=== PATIENT | male | born 1985 | race Caucasian/White ===

== ENCOUNTER 2017-05-05 11:01 | Observation (INO) | payer OTHER ==
[2017-05-05] MEDS ORDERED: Acetaminophen 325 MG TAB ONE (13:37)
[2017-05-05] MEDS ORDERED: Dextrose 50% Abboject 50 ML SYRINGE SLOW IVP PRN (14:57)
[2017-05-05] MEDS ORDERED: Acetaminophen 325 MG TAB PO PRN (14:57)
[2017-05-05] MEDS ORDERED: HumaLOG 300 UNITS/3 ML VIAL SC PRN (14:57)
[2017-05-05] MEDS ORDERED: Dextrose 5% in Water 1,000 ML IV PRN (14:57)
[2017-05-05 15:06] VITALS: BMI 19.3
--- NOTE | 2017-05-05 17:37 | HP ---
PRIMARY CARE PHYSICIAN: None. PRIMARY NEUROLOGIST: Dr. Marroquin and Dr. Mony Link. CHIEF COMPLAINT: Seizures. HISTORY OF PRESENT ILLNESS: Mr. Cannon is a 31-year-old white male with multiple previous admissions for seizure activity, bipolar disorder, schizoaffective disorder, who presents to the emergency depa rtment in [place] for seizures. The patient stated he was brought in by his mother who said he had 12 tonic clonic episodes overnight . He also communicated her that he had some suicidal ideation and had no immediate plan. He denies any of that other than the episodes. Today, he feels okay. No fevers or chills, no chest pain or shortness of breath. No nausea or vomit ing. Further review of the chart shows he was admitted here in 09/2016 for same episodes. He underwent EE G monitoring with demonstrated episodes that showed no epileptiform activity. He was taken off his K eppra and his Dilantin and diagnosed with pseudoseizures. He was supposed to do a 24-hour EEG monito ring with Dr. Mony Link, but his insurance denied as they had proof of non-epileptiform activity. He subsequently has not been back for followup. The patient states he is still taking his Dilantin and his Keppra, but it is unclear he has been fill ing these. He denies any other current complaints. Workup in the ER showed a normal bicarbonate, normal CK. He has had no episodes here and prolactin o rdered stat has come back negative. No other current complaints. PAST MEDICAL HISTORY: 1. 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 2. Cerebrovascular disease status post stroke in 2013 with a normal MRI in 09/2016. 3. Bipolar disorder, not on medication. 4. Schizoaffective disorder, not on medications. PAST SURGICAL HISTORY: Cholecystectomy and tonsillectomy. HOME MEDICATIONS: He says he takes Keppra and Dilantin. Does not know his doses. Does not have his bottles with him. ALLERGIES: ASPIRIN, DEMEROL, PENICILLIN G, SULFA, ZITHROMAX. He cannot recall the reactions. He is allergic to TOMATOES and BANANAS. SOCIAL HISTORY: Negative for tobacco about 1 pack per day for the last 20 years. He said he started smoking when he was 9. FAMILY HISTORY: Negative for clotting or bleeding disorder. No immune dysfunction. No blood tumors . REVIEW OF SYSTEMS: A 10-point review of systems was attempted. The patient answered negative to all systems, but unsure of the reliability. PHYSICAL EXAMINATION: VITAL SIGNS: Temperature 98.9, pulse 84, blood pressure 113/72, respiratory rate 14, sat 99% on room air. GENERAL: He is awake. He is alert. He is oriented x3. He is a little on the slow side, but answer s questions completely. He does not appear to be in acute distress. HEENT: Normocephalic, atraumatic. He has a small blood blister present on the center of his lower l ip. He has no lacerations on his tongue. Mucous membranes are clear without any thrush. NECK: Supple without lymphadenopathy, JVD, or thyromegaly. There are normal carotid upstrokes. The re are no bruits. LUNGS: Clear to auscultation bilaterally. Good air movement with symmetrical chest excursion. No p rolonged expiratory phase. No wheezes or rales. CARDIOVASCULAR: Normal S1, S2. There is no S3 or S4. He has got a bounding PMI normal size. He jackson s got no murmurs. ABDOMEN: Soft. It is nontender, nondistended. Good bowel sounds present in all 4 quadrants. There is no rebound, rigidity, or guarding. He has no hepatosplenomegaly. EXTREMITIES: No cyanosis, no clubbing, no edema. Has has 2+ peripheral pulses in dorsalis pedis, po sterior tibial, and radial arteries bilaterally. SKIN: Warm, moist, and well perfused. He has no rashes or lesions otherwise. NEUROLOGIC: Cranial nerves II-XII grossly intact. He has 5/5 strength in all 4 of his extremities. Normal reflexes. Normal speech pattern, though little slow. MUSCULOSKELETAL: Normal to inspection. He has no inflamed joints. No palpable effusions. Good ran ge of motion. LABORATORY DATA: Sodium 136, potassium 3.3, chloride 101, bicarb 23, BUN 8, creatinine 1.05, glucose 164, and calcium 9.1. Liver function completely normal. CBC showed a white count of 9.9, hemoglobi n 17.2, hematocrit of 51.2, platelet count 273,000 with normal white differential. Urine drug screen negative. Urinalysis negative. CK was 124. MRI in 09/2016 negative. ASSESSMENT AND PLAN: 1. Pseudoseizures: I do not think the patient was having active seizures. Given he had 12 episodes , CK should not be normal nor is bicarbonate. Prolactin is normal. I spoke with imtiaz Villaseñor stated that we can place him on observation and get a 24-hour EEG monitoring. If he had more event s that were negative, then we probably would be able to definitively diagnose pseudoseizures and not had to admit him anymore. The patient was placed in observation, will get a 24-hour EEG monitoring o rdered. We will check a Keppra level and a Dilantin level though he just did get a dose of Dilantin in the ER for some reason and will follow up on these. 2. History of cerebrovascular disease. The patient has a normal MRI. I do not see any encephalomal acia, nothing was called by Radiology. I am not convinced that he had an episode at all. 3. Bipolar disorder, on no medications. 4. Schizoaffective disorder, not on medications. 5. The patient will be placed on SCDs for deep venous thrombosis prophylaxis and Pepcid p.o. b.i.d. for gastrointestinal prophylaxis.
[2017-05-05] MEDS: Nicotine 14 MG PATCH TD SCH (19:55)
[2017-05-05] MEDS: Famotidine 20 MG TAB PO SCH (19:55)
[2017-05-06 07:45] VITALS: TEMP 98.5
[2017-05-06 11:02] VITALS: BP 95/56
[2017-05-06] MEDS: Famotidine 20 MG TAB PO SCH (11:18)
[2017-05-06] MEDS: Nicotine 14 MG PATCH TD SCH (11:18)
--- NOTE | 2017-05-06 16:07 | DIS ---
DATE OF ADMISSION: 05/05/2017 DATE OF DISCHARGE: 05/06/2017 DISCHARGE DIAGNOSES: 1. Pseudoseizures. 2. Noncritical suicidal ideation. 3. Bipolar disorder. 4. Schizoaffective disorder. 5. Ongoing tobacco abuse. CONSULTATIONS: Neurology for continuous EEG monitoring for 24 hours. PROCEDURE: Continuous EEG monitoring for 22 hours. During that time, the patient had no episodes. No epileptiform discharges were noted. The patient did get up and go to the bathroom without assista nce and did disconnect himself for a few hours, but had no spells during that time. HISTORY AND PHYSICAL: Mr. Cannon is a 31-year-old gentleman with a history of bipolar disorder and s chizoaffective disorder, recently admitted in 09/2016 for an episode of multiple seizures. During th at time, he had EEG monitoring and had episodes of tonic clonic activity. During stimulation, he had no epileptiform discharges on his EEG monitoring. He was discharged with a diagnosis of pseudoseizu res with outpatient followup for a continuous 24-hour EEG monitoring, but the insurance denied due to the fact that he had a witnessed event with negative EEG monitoring in the hospital. The patient never came for followup. He was taken off the Dilantin and Keppra and did well. The patient presented to the emergency department on 05/05/2017 with complaints of 12 episodes of sei zure overnight. In the emergency department, he had a normal bicarbonate, negative prolactin, normal CK, we were called for admission procedures. On review of the history, I did contact Dr. Mony Link. The history as above was reviewed. We agre ed to place the patient in observation and put him on continuous monitoring via another negative seri es, and then we could assume these were pseudoseizures and do not need any further admissions in the future. HOSPITAL COURSE: The patient was seen and examined by me. He was admitted to observation on the str [facility] unit. He started continuous EEG monitoring and was watched overnight. Overnight 1-2, no episodes. He did disconnect himself incidentally from the EEG monitoring for a few hours, but was replaced. There was no spells during that time. He had no spells, well connected, h ad no evidence of epileptiform discharges. When he was told, he could not go down to smoke shortly after admission, he did threaten to commit ramos icide, [facility] was consulted and saw the patient and cleared him for discharge home as it was an empty t hreat. He had no other problems. This morning on examination, the patient refused to wake up and talk, but had no problem waking up 5 minutes before that to eat his breakfast. He was discharged home at the conclusion of EEG monitoring for outpatient followup. We did a physica l exam. The patient was seen and examined on day of discharge. DISCHARGE PLAN AND DISPOSITION: Return to be discussed with the patient; however, he would not respo nd. DISCHARGE MEDICATIONS: Resuming all home medications. He is supposed to be on metformin which will continue, antiepileptic per his primary doctor if they deem appropriate. DISCHARGE CONDITION: Good. DISPOSITION: Discharged home via private vehicle. DISCHARGE DIET: Diabetic. DISCHARGE ACTIVITY: As tolerated. FOLLOWUP: 1. PCP: He has none needs to establish. 2. [facility] the next available. 3. Both Dr. Cara Link and Dr. Mony Link did not need to see him in followup as he has no seizure disorder.
--- NOTE | 2017-05-12 10:52 | EEG ---
Referring Physician: DR. Casie LUCAS EEG # [id number] TEST TYPE: PROLONGED 24 HOUR EEG PROCEDURE: Video EEG report PATIENT NAME: Sarmad Cannon MR# [id number] : 1985 LOCATION: [address] [place] [address] STUDY TYPE: VIDEO EEG STUDY DATE: 05/05/2017 05/06/2017 THE STUDY WAS REVIEWED AND INTERPRETED BY DR. BLANCA BURT STUDY REPORT: This was a technically difficult study for interpretation because of abundant movement and electrode artifact throughout the recording. Patient was started on the recording on 05/05/17 at 17:07:50 and then patient had disconnected his EEG at 20:36:21 He was reconnected on 05/06/2017 at 7:45 28 and he disconnected it again at 11:14:13. So in this 24-hour video EEG recording, we were able to record 6-7 hours of video EEG. The background rhythm in the artifact free period showed a background rhythm consisting of myogenic activity mixed with abundant beta activity and some alpha rhythm of 8-9 Hz. It was symmetric and reactive bilaterally. Again abundant movement and electrode artifact noted. DROWSINESS: No clear periods of drowsiness noted during the recording. SLEEP: Subject was able to attain non-REM sleep with normal sleep potentials. INTERICTAL EEG: Patient did not have any clear epileptiform activity during the recording. He did not have any electrographic seizure events during the recording. ICTAL EVENTS: The patient did not have any episodes during this recording even when the EEG was disconnected he did not have any spells. INTERPRETATION: Normal awake and asleep EEG. This study was recorded for around 7 hours, No epileptiform activity or electrographic seizure activity noted. Again, it was a technically difficult study because of the abundant movement and electrode artifact, Clinical correlation recommended. Ditto Machine Operator:lalito Diamond Die Polisher: [email or web address].[email or web address] GENTILE
== END 2017-05-06 15:15 | disposition home or self-care (01) ==
LOC: ERS 11:01 → ERHOLD 12:09 → 2SE 14:32
PROVIDERS: ADMIT Internal Medicine Infectious Disease; ATTEND Internal Medicine Infectious Disease
DX: F44.5 Conversion disorder with seizures or convulsions (principal); R45.851 Suicidal ideations; F31.9 Bipolar disorder, unspecified; F25.9 Schizoaffective disorder, unspecified; F17.210 Nicotine dependence, cigarettes, uncomplicated; I67.9 Cerebrovascular disease, unspecified; F90.9 Attention-deficit hyperactivity disorder, unspecified type; Z86.73 Personal history of transient ischemic attack (TIA), and cerebral infarction without residual deficits; Z79.899 Other long term (current) drug therapy; Z88.0 Allergy status to penicillin; Z88.2 Allergy status to sulfonamides; Z88.1 Allergy status to other antibiotic agents; Z88.5 Allergy status to narcotic agent; Z91.018 Allergy to other foods; Z90.49 Acquired absence of other specified parts of digestive tract; Z98.890 Other specified postprocedural states
CPT/HCPCS: 36415; 36416; 80177; 84146; 95816; 95819; 95953; 99285; G0378

== ENCOUNTER 2017-10-29 20:33 | Emergency (ER) | payer OTHER ==
[2017-10-29 21:03] LABS: #Basophils 0.1 thou/uL (0.0-0.2); #Eosinphils 0.2 thou/uL (0.0-0.7); #Lymphocytes 2.5 thou/uL (1.20-3.40); #Monocytes 0.5 thou/uL (0.11-0.59); #Neutrophils 3.5 thou/uL (1.40-6.50); %Basophils 0.9 % (0.0-1.0); %Eosinophils 2.6 % (0.0-10.0); %Monocytes 7.1 % (0.0-10.0); %Neutrophils 52.3 % (42.0-75.0); Hemoglobin 15.8 g/dL (14.0-18.0); Mean Corpuscular HGB CONC 35.3 g/dL (32.0-36.0); Mean Corpuscular Volume 90.8 fL (78.0-98.0); Mean Platelet Volume 6.9 fL (7.4-10.4); Platelet Count 238 thou/uL (130-400); RBC Distribution Width 11.7 % (11.5-14.5); Red Blood Cell (RBC) Count 4.93 mill/uL (4.70-6.10); White Blood Cell (WBC) Count 6.6 thou/uL (4.8-10.8)
[2017-10-29 21:09] LABS: ALT (SGPT) 17 U/L (8-55); AST (SGOT) 13 U/L (5-34); Albumin 4.6 g/dL (3.5-5.0); Alkaline Phosphatase 71 U/L (40-150); Anion Gap 18 mmol/L (10-20); BUN (Urea Nitrogen) 11 mg/dL (8.9-20.6); Bilirubin, Total 0.8 mg/dL (0.2-1.2); Calc. Creatinine Clearance 0 mL/min (70-130); Calcium 9.6 mg/dL (7.8-10.44); Carbon Dioxide 17 mmol/L (22-29); Chloride 108 mmol/L (98-107); Estimated GFR-MDRD 73; Globulin 2.7 g/dL (2.4-3.5); Glucose 87 mg/dL (70-105); Potassium 3.9 mmol/L (3.5-5.1); Protein, Total 7.3 g/dL (6.0-8.3); Sodium 139 mmol/L (136-145)
== END 2017-10-29 22:40 | disposition home or self-care (01) ==
LOC: ERS 20:33
DX: R56.9 Unspecified convulsions (principal); E11.9 Type 2 diabetes mellitus without complications; F90.9 Attention-deficit hyperactivity disorder, unspecified type; F43.10 Post-traumatic stress disorder, unspecified; F17.210 Nicotine dependence, cigarettes, uncomplicated; Z79.899 Other long term (current) drug therapy; Z79.84 Long term (current) use of oral hypoglycemic drugs
CPT/HCPCS: 36416; 80053; 84146; 85025; 93005

== ENCOUNTER 2017-10-30 15:57 | Emergency (ER) | payer OTHER ==
[2017-10-30 16:46] LABS: #Eosinphils 0.1 thou/uL (0.0-0.7); #Monocytes 0.5 thou/uL (0.11-0.59); #Neutrophils 3.4 thou/uL (1.40-6.50); %Basophils 0.1 % (0.0-1.0); %Eosinophils 2.4 % (0.0-10.0); %Monocytes 7.8 % (0.0-10.0); %Neutrophils 56.6 % (42.0-75.0); Hemoglobin 15.1 g/dL (14.0-18.0); Mean Corpuscular HGB CONC 35.2 g/dL (32.0-36.0); Mean Corpuscular Hemoglobin 31.8 pg (27.0-31.0); Mean Corpuscular Volume 90.3 fL (78.0-98.0); Mean Platelet Volume 6.9 fL (7.4-10.4); Platelet Count 215 thou/uL (130-400); RBC Distribution Width 11.5 % (11.5-14.5); Red Blood Cell (RBC) Count 4.74 mill/uL (4.70-6.10); White Blood Cell (WBC) Count 6.1 thou/uL (4.8-10.8)
[2017-10-30 17:07] LABS: ALT (SGPT) 14 U/L (8-55); AST (SGOT) 12 U/L (5-34); Albumin 4.1 g/dL (3.5-5.0); Alkaline Phosphatase 60 U/L (40-150); Anion Gap 12 mmol/L (10-20); BUN (Urea Nitrogen) 11 mg/dL (8.9-20.6); Bilirubin, Total 1.2 mg/dL (0.2-1.2); Calc. Creatinine Clearance 0 mL/min (70-130); Carbon Dioxide 21 mmol/L (22-29); Chloride 109 mmol/L (98-107); Estimated GFR-MDRD Greater than 90; Globulin 2.4 g/dL (2.4-3.5); Glucose 100 mg/dL (70-105); Potassium 3.7 mmol/L (3.5-5.1); Protein, Total 6.5 g/dL (6.0-8.3); Sodium 138 mmol/L (136-145)
--- NOTE | 2017-10-30 18:39 | RAD ---
RIGHT HAND THREE VIEWS: History: Hand swelling. FINDINGS: There are no signs of fracture or dislocation. No other bony findings. IMPRESSION: Negative right hand. POS: [facility]
--- NOTE | 2017-10-30 18:45 | RAD ---
LEFT HAND THREE VIEWS: History: Hand swelling. FINDINGS: There are no signs of fracture. Bony demineralization is normal. Joint spaces appear well preserved. Soft tissue swelling is present. IMPRESSION: No bony findings. No evidence of any radiopaque foreign bodies. POS: [facility]
== END 2017-10-30 18:00 ==
LOC: ERS 15:57
DX: R56.9 Unspecified convulsions (principal); F90.9 Attention-deficit hyperactivity disorder, unspecified type; E11.9 Type 2 diabetes mellitus without complications; F43.10 Post-traumatic stress disorder, unspecified; F17.210 Nicotine dependence, cigarettes, uncomplicated; Z86.73 Personal history of transient ischemic attack (TIA), and cerebral infarction without residual deficits; Z79.84 Long term (current) use of oral hypoglycemic drugs; Z79.899 Other long term (current) drug therapy
CPT/HCPCS: 36416; 80053; 84146; 85025; 93005; 94760; 96360